=== PATIENT | female | born 1955 | race Caucasian/White ===

== ENCOUNTER 2020-03-06 16:39 | Inpatient (IN) | payer MEDICARE, BC ==
[~2020-03-06] VITALS: Ht 162.6 cm; Wt 45.4 kg
--- NOTE | 2020-03-06 16:00 | NUR ---
RECIEVED PT FROM FAMILY;TAKEN TO ROOM 1113A.ORIENTED TO ROOM AND CALL LIGHT.ALARM SET.
[2020-03-06 17:02] VITALS: BP 118/61
[2020-03-06 17:17] VITALS: BP 118/61; BMI 17.2
[2020-03-06] MEDS ORDERED: CITRACAL + D E1 EACH PO (18:28)
[2020-03-06] MEDS ORDERED: ECOTRIN325 MG PO (18:29)
[2020-03-06] MEDS ORDERED: FERROUS SULFAT325 MG PO (18:33)
[2020-03-06] MEDS ORDERED: FOLIC ACID1 MG PO (18:34)
[2020-03-06] MEDS ORDERED: NEURONTIN600 MG PO (18:35)
[2020-03-06] MEDS ORDERED: OMEPRAZOLE20 M1 PO (18:37)
[2020-03-06] MEDS ORDERED: NITROSTAT0.4 MG SL (18:37)
[2020-03-06] MEDS ORDERED: K-DUR20 MEQ PO (18:38)
[2020-03-06] MEDS ORDERED: ZOLOFT100 MG PO (18:39)
[2020-03-06] MEDS ORDERED: VITAMIN B-1100 M1 PO (18:39)
[2020-03-06] MEDS ORDERED: TOPAMAX100 MG PO (18:40)
[2020-03-06] MEDS ORDERED: VITAMIN B-1250 MCG PO (18:42)
[2020-03-06] MEDS ORDERED: VITAMIN D1000 UNI1 PO (18:44)
--- NOTE | 2020-03-06 19:07 | NUR ---
GREETED PATIENT AND INTRODUCED MYSELF HER NURSE. PATIENT IS RESTING QUIETLY AT THIS TIME BUT CONFUSED TO ONLY HERSELF AT THIS TIME. RESPIRATIONS EVEN. NO S/S OF DISTRESS. BEDSIDE SHIFT REPORT COMPLETE FROM OFF GOING NURSE. CALL LIGHT IN REACH.
[2020-03-06 23:05] VITALS: BP 125/63
--- NOTE | 2020-03-07 00:41 | NUR ---
WHILE TRYING TO CHANGE PATIENT OF INCONTINENT URINE. PATIENT STARTING CUSSING AND SWINGING AT THIS NURSE AND THE AID. ATTEMPTED TO REPOSITION PATIENT AND STILL CUSSING AND TRYING TO HIT. CALL LIGHT IN REACH.
--- NOTE | 2020-03-07 05:49 | NUR ---
PT RESTING QUIETLY WITH EYES CLOSED. RESPIRATIONS EVEN. NO S/S OF DISTRESS. CALL LIGHT IN REACH.
--- NOTE | 2020-03-07 06:50 | NUR ---
RESTING IN BED WITH EYES CLOSED. RESPIRATIONS EVEN AND UNLABORED. NO S/S OF ACUTE DISTRESS NOTED. BUE BRUISING. BED ALARM ON. CALL LIGHT IN REACH. WILL CONTINUE TO MONITOR.
[2020-03-07 07:22] LABS: BASOPHILS 0.3 % (0-2); EOSINOPHILS 2.4 % (0-7); HEMOGLOBIN 11.7 g/dL (12-16); LYMPHOCYTES 38.1 % (15-50); MCH 36.3 pg (26.0-34.0); MCHC 33.4 g/dL (31.0-37.0); MCV 108.7 fL (80.0-100.0); MEAN PLATELET VOLUME 9.4 fL (7.4-10.4); MONOCYTES 12.3 % (2-11); NEUTROPHILS 46.9 % (40-80); PLATELET COUNT 194 10x3/uL (130-400); RBC 3.22 10x6/uL (4.00-5.40); RDW 14.8 % (11.5-14.5); WBC 3.3 10x3/uL (4.8-10.8)
[2020-03-07 07:34] LABS: CALC OSMOLALITY 280 mosm/kg (275-300); CARBON DIOXIDE 25.1 mmol/L (21.0-32.0); CHLORIDE - SERUM 107 mmol/L (98-107); CREATININE - SERUM 0.8 mg/dL (0.6-1.3); GLUCOSE 72 mg/dL (74-106); POTASSIUM - SERUM 3.1 mmol/L (3.5-5.1); SODIUM 142 mmol/L (136-145); UREA NITROGEN 9 mg/dL (7-18); eGFR NON AFRICAN AMERICAN 76 mL/min (90-120)
[2020-03-07 08:00] VITALS: BP 98/53
--- NOTE | 2020-03-07 11:00 | NUR ---
I have reviewed this patient and I concur with the Shift Assessment completed by the Licensed Practical Nurse today this shift.
[2020-03-07 14:04] VITALS: Ht 162.6 cm; Wt 45.4 kg
--- NOTE | 2020-03-07 15:46 | NUR ---
PATIENT ANXIOUS AND TRYING TO GET OUT OF BED. TREMORS TO HANDS AND LEGS VERY PROMINATE. THIS NURSE GAVE PATIENT ATIVAN PER PHYSICIAN ORDERS. THIS NURSE ASSISTED PATIENT TO RESTROOM AND BROUGHT PATIENT TO NURSES STATION TO OBSERVE AND REDIRECT PATIENT. THEN ASSISTED PATIENT BACK TO BED PER PATIENT REQUEST. SHARON ALARM ON. CALL LIGHT IN REACH. WILL CONTINUE TO MONITOR.
--- NOTE | 2020-03-07 16:11 | NUR ---
CARE TEAM MEETING: PATIENT IS NEW TO UNIT AND WILL BE RA AT NEXT MEETING. WILL CONTINUE TO FOLLOW WITH PATIENT.
--- NOTE | 2020-03-07 16:30 | RHP ---
PATIENT: JOSE ANTONIO ANDRADE MEDICAL RECORD: [id number] ACCOUNT: [id number] LOCATION:[id number] : 53 ADMISSION DATE: 03/06/20 REHABILITATION HISTORY AND PHYSICAL EXAMINATION POST ADMISSION PHYSICIAN EXAMINATION HISTORY OF PRESENT ILLNESS: The patient is a 64-year-old female patient admitted for Wernicke's encephalopathy. She is 64-year-old female patient admitted to the hospital for generalized weakness and tremors. She stayed in the ER that she did consume alcohol every day, but has not had any for 4 days prior to admission. She began having weakness, tremors, dizziness. The patient was noted to have an elevated blood pressure, tachycardia, low magnesium and was anxious. She was receiving IV banana bag and electrolyte placement and started on an Ativan. The patient spoke with the patient's daughter and noted that she has had these symptoms in the past. Because of her alcoholism, she is noted to be weak, debilitated at that time and admitted for acute rehab to be able to return back to her prior level of functioning. She was receiving physical and occupational therapy during her stay. She needs to monitor closely for any type of seizure activity, alcohol withdrawal, pain control, monitor input and output and electrolytes, proximal muscle weakness, moderate tremors, balance deficits, decreased activity tolerance, impaired mobility, decreased quality of life, decreased range of motion, strength, gait disturbance, limited safety awareness and she is at risk for falls. She needs cues for equipment. She has got low endurance, unsteady gait, balance. She fatigues easily, inability to care for herself and self-care deficit. These are barriers to her discharge home. She lives in an apartment at [facility] and was independent with ADLs and mobility using her wheelchair and rolling walker at times. She is currently set up for mod assist for ADLs and mod assist for mobility. She would like to return back home at her prior level of function or better. She has been somewhat confused and combative at times here. COMORBIDITIES: Include weakness, alcohol withdrawal seizures, tremor, confusion and dizziness, impaired mobility, gait disturbance, self-care deficit and high fall risk. PAST MEDICAL HISTORY: Significant for coronary artery disease, carpal tunnel, depression, hypertension, hyperlipidemia, osteoporosis, syncope, traumatic intracranial hemorrhage and subarachnoid hemorrhage secondary to fall, alcohol abuse, tobacco use. PAST SURGICAL HISTORY: Includes bladder repair, angioplasty with stent and a risked for fracture repair. ALLERGIES: EGGS AND TOMATOES. CURRENT MEDICATIONS: Include atenolol 25 mg b.i.d., folic acid 1 mg daily, ferrous sulfate 325 daily, aspirin 325 mg daily, vitamin D 1000 units daily, B12 50 mcg daily, Topamax 100 mg daily, B1 or thiamine 100 mg daily, Zoloft 100 mg daily, Protonix 40 mg daily, lorazepam 1 mg q.6 hours p.r.n., melatonin 6 mg at bedtime, potassium 20 mEq b.i.d., Os-Mumtaz D 500 mg b.i.d., Neurontin 600 mg b.i.d., Nitrostat p.r.n., and polyethylene glycol 17 g in 8 ounces of water daily. HABITS: Does have history of tobacco and alcohol use. HISTORY AND PHYSICAL [id number] JOSE ANTONIO ANDRADE FAMILY HISTORY: Noncontributory. SOCIAL HISTORY: The patient hopes to return back to [place] and get back to her prior level of functioning. REVIEW OF SYSTEMS: GENERAL: Does complain of weakness and fatigue. HEENT: Denies cold, cough, or congestion. CARDIOVASCULAR: Denies any chest pain. PHYSICAL EXAMINATION: VITAL SIGNS: Stable, afebrile. GENERAL: A thin, elderly female, in no acute distress, alert upon exam. HEENT: Normocephalic and atraumatic. Mucosa moist. NECK: Supple. No lymphadenopathy. LUNGS: Clear at this time. No wheezing or rales. HEART: Regular rate and rhythm. No murmurs, rubs or gallops. ABDOMEN: Soft, benign, and nondistended. Positive bowel sounds times 4. EXTREMITIES: No clubbing, cyanosis or edema. NEUROLOGIC: She is little bit confused, but is easily redirected. LABORATORY DATA: Her white count is 3.3, H&H of 11 and 35 respectively. MCV is 108.7, which is expected with her alcohol use. Platelets 194. Sodium 142, potassium 3.1, BUN and creatinine of 9 and 0.8 and blood sugar is noted to be 72. ASSESSMENT: A 64-year-old female patient admitted to rehab with a working diagnosis of Wernicke's encephalopathy. The patient has potential to make improvement. We instituted the following multidisciplinary therapies including, but not limited to physical, occupational, respiratory, speech, nutritional services, prosthetics and orthotics. Given her complex medical condition and risk for more complications, rehabilitation services cannot be provided at a low level of care such a skilled nurse facility. PLAN: 1. Admit to [facility] for intensive inpatient therapy to include the following disciplines: A. Physical therapy to improve gait, all transfer skills and bed mobility to a modified independent level. B. Occupational therapy to improve activities of daily living. C. Case management to assist with discharge planning and placement options. D. Nutrition to assist with nutritional needs. E. Rehabilitation nursing to assist in monitoring the patient's underlying medical conditions and to assist with any type bowel or bladder management. 2. The patient's current medication and medical care will be continued. 3. The patient will be placed on standard fall precautions. 4. I am going to place her back on some Librium, can still use Ativan p.r.n. 5. We will reevaluate in the a.m. TRANSINT:[id number] Voice Confirmation ID: [id number] DOCUMENT ID: [id number] BARBARA notes whether there has been none or any medical/functional change since admission: - No change since pre-admission screen. HISTORY AND PHYSICAL [id number] JOSE ANTONIO ANDRADE attests patient continues to be appropriate for IRF: - Continues to be appropriate. YRN ARSHAD MD at 1630 CC: [id number] DICTATION DATE: 03/07/20907 [employer]KER: 03/07/20 0958 ADM IN [facility] [address] [place] [address]
--- NOTE | 2020-03-07 18:06 | NUR ---
RESTING IN BED WITH HOB ELEVATED, DRINKING AN ENSURE. NO C/O PAIN. NO S/S OF ACUTE DISTRESS NOTED. DENIES ANY NEEDS AT THIS TIME. CALL LIGHT IN REACH. SHARON ALARM ON. WILL CONTINUE TO MONITOR.
--- NOTE | 2020-03-07 18:49 | NUR ---
GREETED PATIENT AND INTRODUCED MYSELF HER NURSE. PATIENT IS LAYING IN BED AT THIS TIME. PT CONFUSED AT THIS TIME. ALERT TO SELF ONLY. RESPIRATIONS EVEN. NO S/S OF DISTRESS. CALL LIGHT IN REACH.
[2020-03-07 20:33] VITALS: BP 142/78
--- NOTE | 2020-03-08 00:01 | NUR ---
PT SITTING AT NURSES DESK IN WHEELCHAIR. REFUSES TO STAY IN BED. PATIENT IS CONFUSED OF SURROUNDINGS.
--- NOTE | 2020-03-08 01:11 | NUR ---
PT SITTING IN WHEELCHAIR AT THE NURSES DESK. STILL REFUSING TO GO TO BED.
--- NOTE | 2020-03-08 03:45 | NUR ---
PT RETURNED BACK TO BED FROM SITTING IN WHEELCHAIR AT NURSES DESK. CALL LIGHT IN REACH.
--- NOTE | 2020-03-08 04:06 | NUR ---
PT RESTING QUIETLY WITH EYES CLOSED. RESPIRATIONS EVEN. NO S/S OF DISTRESS. CALL LIGHT IN REACH.
[2020-03-08 08:00] VITALS: BP 114/57
--- NOTE | 2020-03-08 08:00 | NUR ---
PATIENT RESTING IN BED WITH EYES CLOSED, NO S/S OF DISTRESS NOTED AT THIS TIME, C/L AND H2O IN REACH, BED ALARM ON
--- NOTE | 2020-03-08 12:00 | NUR ---
PT. UP IN IN W/C WATHCING TV, CONFUSION NOTED, CHAIR ALARM ON, C/L AND H2O IN REACH
--- NOTE | 2020-03-08 16:04 | NUR ---
PT. UP IN W/C WITH THERAPY, DENIES ANY NEEDS AT THIS TIME, CHAIR ALARM ON
[2020-03-08 20:00] VITALS: BP 127/73
--- NOTE | 2020-03-08 22:52 | NUR ---
RECEIVED PATIENT LYING IN BED, CONFUSED, TREMORS FROM ALCOHOL WITHDRAWAL, ABLE TO SWALLOW MEDS, ABLE TO MAKE SIMPLE NEEDS KNOWN, WILL MONITOR PATIENT, WILL FOLLOW POC
[2020-03-09 07:58] LABS: BASOPHILS 0.3 % (0-2); EOSINOPHILS 2.3 % (0-7); HEMATOCRIT 37.2 % (36.0-48.0); HEMOGLOBIN 12.2 g/dL (12-16); IMMATURE GRANULOCYTES 0.3 % (0-5); LYMPHOCYTES 31.8 % (15-50); MCH 36.4 pg (26.0-34.0); MCHC 32.8 g/dL (31.0-37.0); MEAN PLATELET VOLUME 9.9 fL (7.4-10.4); MONOCYTES 11.7 % (2-11); NEUTROPHILS 53.6 % (40-80); PLATELET COUNT 159 10x3/uL (130-400); RBC 3.35 10x6/uL (4.00-5.40); RDW 14.8 % (11.5-14.5); WBC 3.1 10x3/uL (4.8-10.8)
[2020-03-09 08:00] VITALS: BP 103/60
--- NOTE | 2020-03-09 08:15 | NUR ---
RESTING IN BED WITH EYES CLOSED, NO S/S OF DISTRESS NOTED, C/L AND H2O IN REACH, BED ALARM ON.
[2020-03-09 08:16] LABS: CALC OSMOLALITY 273 mosm/kg (275-300); CALCIUM 9.2 mg/dL (8.5-10.1); CARBON DIOXIDE 19.9 mmol/L (21.0-32.0); CHLORIDE - SERUM 104 mmol/L (98-107); CREATININE - SERUM 0.5 mg/dL (0.6-1.3); GLUCOSE 74 mg/dL (74-106); POTASSIUM - SERUM 5.4 mmol/L (3.5-5.1); SODIUM 137 mmol/L (136-145); UREA NITROGEN 14 mg/dL (7-18); eGFR NON AFRICAN AMERICAN > 90 mL/min (90-120)
--- NOTE | 2020-03-09 11:40 | NUR ---
PATIENT UP WITH PT THIS MORNING BEGAN TO FEEL NAUSEA AND THREW UP, PT TOOK PATIENT TO BATHROOM AND PATIENT PASSED A LARGE AMOUNT OF DIARRHEA, SKIN COLOR PALE, B/P OF 84/48, RAPID RESPONSE CALLED, IV STARTED IN RT. FOREARM WITH N/S RUNNING. V/S WNL. PATIENT RESTING WITH EYES CLOSED, C/L AND H2O IN REACH.
[2020-03-09 12:24] LABS: BASOPHILS 0.2 % (0-2); EOSINOPHILS 2.1 % (0-7); HEMATOCRIT 37.1 % (36.0-48.0); HEMOGLOBIN 12.5 g/dL (12-16); IMMATURE GRANULOCYTES 0.2 % (0-5); LYMPHOCYTES 32.5 % (15-50); MCHC 33.7 g/dL (31.0-37.0); MCV 109.8 fL (80.0-100.0); MONOCYTES 12.2 % (2-11); NEUTROPHILS 52.8 % (40-80); PLATELET COUNT 193 10x3/uL (130-400); RBC 3.38 10x6/uL (4.00-5.40); RDW 14.8 % (11.5-14.5); WBC 4.3 10x3/uL (4.8-10.8)
--- NOTE | 2020-03-09 12:31 | NUR ---
PATIENT ADMITTED TO [facility] FROM [facility]. SHE RESIDES AT [facility] IN THE [place]. DISCHARGE PLANS ARE FOR HER TO RETURN THERE. MARJ SOMERS IS PATIENT POA [phone]. WILL CONTINUE TO FOLLOW WITH PATIENT.
[2020-03-09 15:38] LABS: CALC OSMOLALITY 275 mosm/kg (275-300); CALCIUM 9.1 mg/dL (8.5-10.1); CARBON DIOXIDE 20.4 mmol/L (21.0-32.0); CHLORIDE - SERUM 104 mmol/L (98-107); GLUCOSE 82 mg/dL (74-106); SODIUM 138 mmol/L (136-145); UREA NITROGEN 15 mg/dL (7-18)
[2020-03-09 15:44] LABS: CREATININE - SERUM 0.7 mg/dL (0.6-1.3); POTASSIUM - SERUM 4.2 mmol/L (3.5-5.1); eGFR NON AFRICAN AMERICAN 89 mL/min (90-120)
[2020-03-09 20:04] VITALS: BP 77/34
--- NOTE | 2020-03-09 20:04 | NUR ---
PT IN BED TRUNDLENBERG POSITION, VS. 97.3, BP-77/43, P-65, R-17, O2-98 RA. SLEEPING, AROUSES EASILY TO VOICE, NO NEEDS NOTED, FALL PRECAUTIONS IN PLACE, FLUIDS/CALL LIGHT WITHIN REACH
--- NOTE | 2020-03-09 20:42 | NUR ---
ATENOLOL HELD BP-96/46 P-63
--- NOTE | 2020-03-10 04:49 | NUR ---
PT CONTINUES TO HAVE LOW BP 86/46, P 59 AT 0430, STARTED NEW ORDER FOR 250ML 0.9% AT A RATE OF 250ML/HR PT ASHEN IN COLOR,HAS BEEN IN TRUNDLE CLARISSA POSITION SINCE DAY SHIFT DUE TO SUDDEN BP DROP AND WEAKNESS AFTER BOUT OF DIARRHEA, PT CONTINUES TO HAVE DIARRHEA DARK AND GREEN IN COLOR.
--- NOTE | 2020-03-10 05:45 | NUR ---
PT RECIEVED ANOTHER 250ML NS AT 250ML/HR BP INCREASING 110/59 P 62, PT AROUSES EASILY TO VOICE
[2020-03-10 07:54] LABS: CALC OSMOLALITY 279 mosm/kg (275-300); CALCIUM 9.3 mg/dL (8.5-10.1); CARBON DIOXIDE 22.1 mmol/L (21.0-32.0); CHLORIDE - SERUM 106 mmol/L (98-107); CREATININE - SERUM 0.7 mg/dL (0.6-1.3); GLUCOSE 77 mg/dL (74-106); POTASSIUM - SERUM 3.6 mmol/L (3.5-5.1); SODIUM 140 mmol/L (136-145); UREA NITROGEN 17 mg/dL (7-18); eGFR NON AFRICAN AMERICAN 89 mL/min (90-120)
--- NOTE | 2020-03-10 08:00 | NUR ---
SHIFT ASSMT COMPLETED.
[2020-03-10 10:30] VITALS: BP 80/41
[2020-03-10 13:37] LABS: HEMATOCRIT 36.4 % (36.0-48.0); HEMOGLOBIN 12.4 g/dL (12-16); LYMPHOCYTES 24.8 % (15-50); MCH 37.1 pg (26.0-34.0); MCHC 34.1 g/dL (31.0-37.0); MEAN PLATELET VOLUME 10.1 fL (7.4-10.4); NEUTROPHILS 56.2 % (40-80); RBC 3.34 10x6/uL (4.00-5.40); RDW 14.9 % (11.5-14.5); WBC 3.3 10x3/uL (4.8-10.8)
[2020-03-10 13:42] LABS: PLATELET COUNT 154 10x3/uL (130-400)
--- NOTE | 2020-03-10 19:37 | NUR ---
PT UP IN CHAIR, NO NEEDS NOTED FALL PRECAUTIONS IN PLACE, FLUIDS/CALL LIGHT WITHIN REACH
--- NOTE | 2020-03-11 01:51 | NUR ---
PT TOILETED, FALL PRECAUTIONS IN PLACE, FLUIDS/CALL LIGHT IN REACH
[2020-03-11 02:53] VITALS: BP 129/72
[2020-03-11 03:05] VITALS: BP 104/50
--- NOTE | 2020-03-11 06:26 | NUR ---
PT ON BATH SCHEDULE RECIEVED A BED BATH THIS MORNING
[2020-03-11 08:11] VITALS: BP 86/46
--- NOTE | 2020-03-11 09:40 | NUR ---
PATIENT SAT UP IN BED TO EAT BREAKFAST. BED ALARM ON. CALL LIGHT WITHIN REACH. VOICES NO NEEDS AT THIS TIME. WILL CONTINUE WITH PLAN OF CARE
--- NOTE | 2020-03-11 13:30 | NUR ---
I have reviewed this patient and I concur with the Shift Assessment completed by the Licensed Practical Nurse today this shift.
--- NOTE | 2020-03-11 20:05 | NUR ---
PT IN BED, INCONTINENT EPISODE, CLEANED/BED CHANGED, FLUIDS/CALL LIGHT WITHIN REACH
--- NOTE | 2020-03-11 22:14 | NUR ---
MED PASS COMPLETE, PT INCONTINENT OF B&B, CLEANED/CHANGED, NO OTHER NEEDS NOTED
[2020-03-12 00:16] VITALS: BP 102/54
--- NOTE | 2020-03-12 08:00 | NUR ---
PATIENT RESTING IN BED WITH EYES CLOSED, NO S/S OF DISTRESS NOTED, C/L AND H2O IN REACH.
[2020-03-12 08:24] VITALS: BP 110/63
[2020-03-12 09:00] LABS: HEMATOCRIT 35.2 % (36.0-48.0); HEMOGLOBIN 11.8 g/dL (12-16); MCH 36.4 pg (26.0-34.0); MCHC 33.5 g/dL (31.0-37.0); MCV 108.6 fL (80.0-100.0); MEAN PLATELET VOLUME 9.1 fL (7.4-10.4); PLATELET COUNT 186 10x3/uL (130-400); RBC 3.24 10x6/uL (4.00-5.40); RDW 14.3 % (11.5-14.5); WBC 2.8 10x3/uL (4.8-10.8)
[2020-03-12 09:11] LABS: ANION GAP 11.9 mmol/L (8-16); CALCIUM 9.2 mg/dL (8.5-10.1); CARBON DIOXIDE 25.7 mmol/L (21.0-32.0); CREATININE - SERUM 0.9 mg/dL (0.6-1.3); POTASSIUM - SERUM 3.6 mmol/L (3.5-5.1)
[2020-03-12 11:46] LABS: EOSINOPHILS 3 % (0-7); LYMPHOCYTES 45 % (15-50); MONOCYTES 7 % (2-11); NEUTROPHILS 45 % (40-80); PLATELET ESTIMATE NORMAL; ROULEAUX OCC
--- NOTE | 2020-03-12 12:00 | NUR ---
PT. RESTING IN BED WITH EYES CLOSED, NO S/S OF DISTRESS NOTED, FALL PERCAUTIONS IN PLACE, C/L AND FLUIDS IN REACH.
--- NOTE | 2020-03-12 13:13 | NUR ---
Nutrition Follow-up: Pt confused. Noted poor PO intake and will not drink nutritional supplements. Diet: Regular, Soft PO intake: 23% avg x 6 meals No new wt; last wt: 100# (03/07) Last BM: 03/11 Labs reviewed Meds noted: Folate, vitamin B12, vitamin D, Protonix, Oscal D -Encourage PO intake and honor food preferences within diet restrictions. -Pt may benefit from appetite stimulant. -Rec new wt; pt is underweight. -RD following.
--- NOTE | 2020-03-12 16:00 | NUR ---
RESTING IN BED WITH EYES CLOSED, NO S/S OF DISTRESS NOTED, C/L AND FLUIDS IN REACH, FALL PRECAUTIONS IN PLACE.
--- NOTE | 2020-03-12 20:00 | NUR ---
ALERT SITTING UP IN BED, TREMORS NOTED TO UPPER EXTREMITIES, EYES OPEN BUT WILL NOT ANSWER QUESTIONS, SEE ASSESSMENT, CALL LIGHT IN REACH
[2020-03-12 20:10] VITALS: BP 94/50
--- NOTE | 2020-03-12 21:30 | NUR ---
EYES CLOSED NO TREMORS NOTED AT THIS TIME, REPOSITIONED UP IN BED BUT UNABLE TO AROUSE TO TAKE SCHEDULED MEDS, WILL MONITOR
--- NOTE | 2020-03-13 02:10 | NUR ---
PT RESTING WITH EYES CLOSED RESP UNLABORED
--- NOTE | 2020-03-13 06:18 | NUR ---
NO CHANGE IN ASSESSMENT
--- NOTE | 2020-03-13 07:15 | NUR ---
AROUSES TO VERBAL STIMULI.IS ORIENTED TO SELF.TREMORS PRESENT OF UPPER EXTREMITIES.GENERALIZED WEAKNESS PRESENT.DENIES NEEDS.WILL CONTINUE WITH CURRENT PLAN OF CARE.CL IN EASY REACH,BED IN LOW POSITION.
[2020-03-13 08:23] VITALS: BP 119/70
--- NOTE | 2020-03-13 09:40 | NUR ---
PO MEDS TAKEN WITHOUT DIFFICULTY.
--- NOTE | 2020-03-13 12:00 | NUR ---
IN BED,REPOSITIONED FOR DIET.CL IN EASY REACH,BED IN LOW POSITION.BED ALARM ON AND WORKING.
--- NOTE | 2020-03-13 19:16 | NUR ---
GREETED PATIENT AND INTRODUCED MYSELF HER NURSE. PATIENT IS LAYING IN BED QUIETLY AND LETHARGIC AT THIS TIME. RESPIRATIONS EVEN. NO S/S OF DISTRESS. CALL LIGHT IN REACH.
--- NOTE | 2020-03-14 02:22 | NUR ---
PT RESTING QUIETLY WITH EYES CLOSED. RESPIRATIONS EVEN. NO S/S OF DISTRESS. CALL LIGHT IN REACH.
[2020-03-14 08:00] VITALS: BP 104/57
--- NOTE | 2020-03-14 08:00 | NUR ---
AWAKE,ORIENTED TO [facility].DISORIENTED TO TIME.TREMORS NOT OBSERVED AT PRESENT TIME.SPEECH CLEARER TODAY.DENIES PAIN AND NEEDS.ASSISTED WITH REPOSITIONING FOR DIET.ASSESSMENT COMPLETED .CL IN EASY REACH,BED IN LOW POSITION.WILL CONTINUE WITH CURRENT PLAN OF CARE.
--- NOTE | 2020-03-14 09:25 | NUR ---
Nutrition follow-up: Diet: Regular soft PO intake ~25% of meals; continues poor at this time Labs reviewed +BM Wt: 99# Pt continues with poor po intake Pt may benefit from an appetite stimulant Will order Ensure and fortified foods (Magic Cup, Mighty shake) RDN following.
--- NOTE | 2020-03-14 15:36 | NUR ---
CARE TEAM MEETING: SPOKE WITH PATIENT FAMILY. TEAM RECCOMENDS THAT PATIENT DSICHARGE TO SNF DUE TO HER COGNITION. WILL CONTINUE TO FOLLOW WITH PATIENT. TENATIVE DISCHARGE DATE IS 03/21/20.
--- NOTE | 2020-03-14 19:05 | NUR ---
GREETED PATIENT AND INTRODUCED MYSELF HER NURSE. PATIENT IS EATING HER DINNER AT THIS TIME. PT IS CONFUSED AND ORIENTATED TO SELF ONLY AT THIS TIME. RESPIRATIONS EVEN. NO S/S OF DISTRESS. CALL LIGHT IN REACH.
[2020-03-14 21:42] VITALS: BP 140/71
--- NOTE | 2020-03-15 02:13 | NUR ---
PT RESTING QUIETLY WITH EYES CLOSED. RESPIRATIONS EVEN. NO S/S OF DISTRESS. CALL LIGHT IN REACH.
--- NOTE | 2020-03-15 04:42 | NUR ---
PT RESTING QUIETLY WITH EYES CLOSED. RESPIRATIONS EVEN. NO S/S OF DISTRESS. CALL LIGHT IN REACH.
[2020-03-15 08:00] VITALS: BP 102/58
--- NOTE | 2020-03-15 08:00 | NUR ---
PATIENT IS ALERT/CONFUSED. BED CHAIR ALARM ON AT ALL TIMES. TAKEN DOWN TO THERAPY ROOM FOR REHAB. DENIES ANY PAIN/DISC AT THIS TIME. WILL CONTINUE WITH PLAN OF CARE.
--- NOTE | 2020-03-15 10:10 | NUR ---
PATIENT FALLING ASLEEP IN WHEELCHAIR. HELPED BACK TO BED. BED ALARM ON
--- NOTE | 2020-03-15 15:29 | NUR ---
FAMILY HAS CHOSEN [facility] WILL SEND REFERRAL
--- NOTE | 2020-03-15 17:55 | NUR ---
I have reviewed this patient and I concur with the Shift Assessment completed by the Licensed Practical Nurse today this shift.
--- NOTE | 2020-03-15 19:06 | NUR ---
PT SLEEPING AT THIS TIME. RESPIRATIONS EVEN. NO S/S OF DISTRESS. CALL LIGHT IN REACH.
[2020-03-15 20:54] VITALS: BP 106/63
--- NOTE | 2020-03-16 01:47 | NUR ---
PT RESTING QUIETLY WITH EYES CLOSED. RESPIRATIONS EVEN. NO S/S OF DISTRESS. CALL LIGHT IN REACH.
--- NOTE | 2020-03-16 03:52 | NUR ---
PT RESTING QUIETLY WITH EYES CLOSED. RESPIRATIONS EVEN. NO S/S OF DISTRESS. CALL LIGHT IN REACH.
[2020-03-16 06:25] LABS: CALC OSMOLALITY 296 mosm/kg (275-300); CALCIUM 9.8 mg/dL (8.5-10.1); CARBON DIOXIDE 27.6 mmol/L (21.0-32.0); CHLORIDE - SERUM 111 mmol/L (98-107); CREATININE - SERUM 0.8 mg/dL (0.6-1.3); GLUCOSE 95 mg/dL (74-106); POTASSIUM - SERUM 3.3 mmol/L (3.5-5.1); SODIUM 147 mmol/L (136-145); UREA NITROGEN 27 mg/dL (7-18); eGFR NON AFRICAN AMERICAN 76 mL/min (90-120)
[2020-03-16 06:46] LABS: BASOPHILS 0.5 % (0-2); EOSINOPHILS 2.6 % (0-7); HEMATOCRIT 35.3 % (36.0-48.0); HEMOGLOBIN 11.4 g/dL (12-16); IMMATURE GRANULOCYTES 0.2 % (0-5); LYMPHOCYTES 24.3 % (15-50); MCH 35.8 pg (26.0-34.0); MCHC 32.3 g/dL (31.0-37.0); MONOCYTES 11.1 % (2-11); NEUTROPHILS 61.3 % (40-80); RBC 3.18 10x6/uL (4.00-5.40); RDW 14.3 % (11.5-14.5); WBC 4.2 10x3/uL (4.8-10.8)
[2020-03-16 07:01] LABS: PLATELET COUNT 226 10x3/uL (130-400)
--- NOTE | 2020-03-16 07:56 | NUR ---
RESTING IN BED WITH EYES CLOSED, NO S/S OF DISTRESS NOTED, C/L AND FLUIDS IN REACH.
[2020-03-16 08:18] VITALS: BP 97/56
--- NOTE | 2020-03-16 12:00 | NUR ---
PATIENT RESTING IN BED WITH EYES CLOSED, RESP EVEN AND UNLABORED, NO S/S OF DISTRESS NOTED, C/L AND FLUIDS IN REACH.
--- NOTE | 2020-03-16 15:57 | NUR ---
REFERRAL HAS BEEN FAXED TO [facility] POSSIBLE ADMISSION. WILL CONTINUE TO FOLLOW WITH PATIENT.
--- NOTE | 2020-03-16 16:00 | NUR ---
PATIENT RESTING IN BED WITH EYES CLOSED, RESP EVEN AND UNLABAORED, NO S/S OF DISTRESS NOTED, C/L AND FLUIDS IN REACH.
--- NOTE | 2020-03-16 19:10 | NUR ---
PT RESTING QUIETLY IN BED. CL IN REACH. NO DISTRESS NOTED. EYES CLOSED. RESP EVEN AND UNLABORED. RIGHT FOREARM SL IV. LUNGS CLEAR. BOWEL ACTIVE X4. WAKES TO VERBAL STIMULI. WILL CONTINUE TO MONITOR.
[2020-03-16 20:32] VITALS: BP 107/59
--- NOTE | 2020-03-17 02:00 | NUR ---
CHANGED PT DUE TO INCONT OF URINE. PT ALERT AND CONFUSED. DENIES NEEDS AT THIS TIME. BED IN LOW SIDE RAILS X2. BED ALARM ON. WCTM
--- NOTE | 2020-03-17 05:00 | NUR ---
I have reviewed this patient and I concur with the Shift Assessment completed by the Licensed Practical Nurse today this shift.
--- NOTE | 2020-03-17 08:00 | NUR ---
PATIENT RESTING WITH EYES CLOSED, RESP EVEN AND UNLABORED, NO S/S OF DISTRESS NOTED, V/S AND ASSESSMENT COMPLETED, C/L AND FLUIDS IN REACH.
[2020-03-17 08:14] VITALS: BP 148/64
--- NOTE | 2020-03-17 12:32 | NUR ---
PATIENT RESTING IN BED WITH EYES CLOSED, NO S/S OF DISTRESS NOTED, RESP EVEN AND UNLABORED, CHANGED BED LINENES, DEREK CARE DONE, C/L AND FLUIDS IN REACH.
--- NOTE | 2020-03-17 15:59 | NUR ---
RESTING IN BED WITH EYES CLOSED, NO S/S OF DISTRESS NOTED, RESP EVEN AND UNLABORED, REPOSITIONED AND TURNED, C/L AND FLUIDS IN REACH.
--- NOTE | 2020-03-17 19:12 | NUR ---
PT LYING IN BED RESTING QUIETLY WITH EYES CLOSED. CL IN REACH. NO DISTRESS NOTED. RESP EVEN AND UNLABORED. WAKENS TO VERBAL STIMULI. BED IN LOW SIDE RAILS X2. BED ALARM ON. LUNGS CLEAR. BOWEL ACTIVE X4. WILL CONTINUE TO MONITOR.
[2020-03-17 20:00] VITALS: BP 103/59
--- NOTE | 2020-03-17 23:46 | NUR ---
I have reviewed this patient and I concur with the Shift Assessment completed by the Licensed Practical Nurse today this shift.
--- NOTE | 2020-03-18 02:04 | NUR ---
CHANGED PT DUE TO URINE INCONT. PT RESTING WITH EYES CLOSED. CL IN REACH. WCTM
--- NOTE | 2020-03-18 11:18 | NUR ---
PT RESTING IN BED WITH EYES OPEN CALL LIGHT IN REACH WILL MONITER
--- NOTE | 2020-03-18 18:16 | NUR ---
PT RESTING IN BED WITH EYES OPEN CALL LIGHT IN REACH NO PROBLEMS WILL MONITER
--- NOTE | 2020-03-18 19:20 | NUR ---
PT SITTING UP IN BED. CL IN REACH. DENIES NEEDS AT THIS TIME. BED IN LOW SIDE RAILS X3. BED ALARM ON. RESP EVEN AND UNLABORED. LUNGS CLEAR. BOWEL ACTIVE X4. TOTAL ASSIST. WILL CONTINUE TO MONITOR.
[2020-03-18 20:31] VITALS: BP 112/65
--- NOTE | 2020-03-18 23:46 | NUR ---
CHANGED PT DUE TO URINE INCONT. BED IN LOW SIDE RAILS X3. BED ALARM ON. WCTM
--- NOTE | 2020-03-19 06:14 | NUR ---
BED BATH GIVEN. ENTIRE BED CHANGE COMPLETED. CL IN REACH. PT DENIES NEEDS AT THIS TIME. WCTM
[2020-03-19 06:31] LABS: ANION GAP 12.2 mmol/L (8-16); CALCIUM 9.7 mg/dL (8.5-10.1); CARBON DIOXIDE 28.2 mmol/L (21.0-32.0); CREATININE - SERUM 0.9 mg/dL (0.6-1.3); POTASSIUM - SERUM 3.4 mmol/L (3.5-5.1)
[2020-03-19 07:34] LABS: HEMATOCRIT 36.2 % (36.0-48.0); HEMOGLOBIN 11.9 g/dL (12-16); LYMPHOCYTES 22.3 % (15-50); MCH 36.3 pg (26.0-34.0); MCHC 32.9 g/dL (31.0-37.0); MCV 110.4 fL (80.0-100.0); NEUTROPHILS 64.9 % (40-80); PLATELET COUNT 231 10x3/uL (130-400); RBC 3.28 10x6/uL (4.00-5.40); RDW 13.7 % (11.5-14.5); WBC 5.8 10x3/uL (4.8-10.8)
--- NOTE | 2020-03-19 08:17 | NUR ---
NO C/O PAIN. RESTING. RESP EVEN AND UNLABORED. CL IN REACH.
[2020-03-19 08:23] VITALS: BP 114/58
--- NOTE | 2020-03-19 10:39 | NUR ---
IN THERAPY AT THIS TIME. NO DISTRESS NOTED.
--- NOTE | 2020-03-19 14:11 | NUR ---
Nutrition follow-up: Diet: Regular soft PO intake remains poor - only ~15-25% of meals labs reviewed Wt: 99# Pt may benefit from an appetite stimulant RDN following.
--- NOTE | 2020-03-19 16:39 | NUR ---
RESTING QUIETLY WO DISTRESS. ASSISTED TO BED EARLIER X 2 THERAPIST. TOTAL ASSIST. CL IN REACH. NO CHANGE IN ASSESSMENT.
[2020-03-19 20:00] VITALS: BP 129/66
[2020-03-20 08:00] VITALS: BP 105/62
--- NOTE | 2020-03-20 08:00 | NUR ---
SATS READING 84-86%. ON FLOOR.PLACED ON O2@2L;SATS UP TO 97%.
[2020-03-20 10:21] LABS: HEMATOCRIT 37.5 % (36.0-48.0); HEMOGLOBIN 12.5 g/dL (12-16); LYMPHOCYTES 17.4 % (15-50); MCH 36.2 pg (26.0-34.0); MCHC 33.3 g/dL (31.0-37.0); MCV 108.7 fL (80.0-100.0); MEAN PLATELET VOLUME 9.8 fL (7.4-10.4); NEUTROPHILS 74.4 % (40-80); PLATELET COUNT 234 10x3/uL (130-400); RBC 3.45 10x6/uL (4.00-5.40); RDW 13.7 % (11.5-14.5); WBC 6.5 10x3/uL (4.8-10.8)
--- NOTE | 2020-03-20 10:30 | NUR ---
PLACED ON C-COLLAR TO HELP ELEVEATE NECK STRAIN.PORT CXR TAKEN.
[2020-03-20 10:41] LABS: CALC OSMOLALITY 304 mosm/kg (275-300); CALCIUM 10.1 mg/dL (8.5-10.1); CARBON DIOXIDE 27.3 mmol/L (21.0-32.0); CHLORIDE - SERUM 111 mmol/L (98-107); CREATININE - SERUM 0.8 mg/dL (0.6-1.3); GLUCOSE 122 mg/dL (74-106); POTASSIUM - SERUM 3.6 mmol/L (3.5-5.1); PRO BNP 204 pg/mL (0-125); SODIUM 148 mmol/L (136-145); UREA NITROGEN 40 mg/dL (7-18); eGFR NON AFRICAN AMERICAN 76 mL/min (90-120)
[2020-03-20 10:42] LABS: TROPONIN-I < 0.017 ng/mL (0.000-0.060)
--- NOTE | 2020-03-20 19:59 | NUR ---
RESTING IN BED WITH EYES CLOSED. RESPIRAITONS UNALBORED. C COLLAR ON TO PREVENT LEANING OVER HEAD TOO FAR. O2/2L ON PER NASAL CANNULA. NOTED WEAKNESS. NO ACUTE DISTRESS NOTED.
[2020-03-20 21:18] VITALS: BP 149/81
--- NOTE | 2020-03-21 01:03 | NUR ---
RESTING IN BED WITH RESPIRATIONS UNLABORED. NO DISTRESS NOTED.
--- NOTE | 2020-03-21 05:00 | NUR ---
WOKE UP BRIEFLY AND WAS TALKING AND LAUGHING TO HERSELF. NOTED CONFUSED. STATED "NO" WHEN I ASK HER IF SHE NEEDED ANYTHING. NOW RESTING WITH EYES CLOSED AND RESPIRATIONS UNLABORED.
--- NOTE | 2020-03-21 08:00 | NUR ---
SHIFT ASSMT COMPLETED.UP OOB;PT STIFF AND RIGID.PLACED IN WC;MOD TRANSFER.REQUIRES BREAKFAST SET-UP AND FED.DRINKING FLDS BETTER TODAY.MORE ALERT TODAY.
--- NOTE | 2020-03-21 10:13 | NUR ---
PATIENT DISCHARGING TO [facility] TODAY VIA FACILITY VAN. NO HOME HEALTH OR DME NEEDED AT THIS TIME.AN APPOINTMENT WITH DR. SHANIA ANDRADE WILL BE MADE AT TIME OF DISCHARGE FROM FACILITY. NALLELY SIGNED FROM VERBAL PERMISSION OF EDDIE LAINEZ AND EXPLAINED. DISCHARGE INSTRUCTIONS FAXED TO PCP, SNF AND REVIEWED WITH PATIENT PER PRIMARY NURSE.
--- NOTE | 2020-03-21 16:00 | NUR ---
VICKEY UP OOB TODAY AND IN CHAIR.CONSUMED 1/4TH MEAL TODAY;2 ENSURE'S AND SHERBERT,WATER AND COLA.PLAN TO DC TO [facility] TOMMORROW.
--- NOTE | 2020-03-21 16:10 | NUR ---
CARE TEAM MEETING: PATIENT DISCHARGE ON HOLD TILL 03/22/20 DUE TO BED AVAILABILITY. WILL CONTINUE TO FOLLOW WITH PATIENT.
--- NOTE | 2020-03-21 19:30 | NUR ---
PATIENT RECEIVED SITTING UP IN BED. INCONTINENT OF URINE. PATIENT CLEANED & PAD BETWEEN LEGS. ASSESSMENT & VITAL SIGNS DONE. BED LOW. ALARM ON. CALL LIGHT WITHIN REACH. WILL CONTINUE TO MONITOR.
[2020-03-21 19:59] VITALS: BP 112/61
--- NOTE | 2020-03-21 21:30 | NUR ---
PATIENT HAD EMESIS ON HER. PATIENT CLEANED. INCONTINENT URINE. PAD & LINENS CHANGED. PATIENT SITTING IN UPRIGHT POSITION. CALL LIGHT WITHIN REACH. ALARM ON. WILL CONTINUE TO MONITOR.
[2020-03-21 22:30] VITALS: BP 126/70
--- NOTE | 2020-03-21 22:30 | NUR ---
PATIENT VITAL SIGNS TAKEN. PATIENT TEMPERATURE ELEVATED. TYLENOL 650 MG GIVEN. BED LOW. ALARM ON. CALL LIGHT WITHIN REACH. WILL CONTINUE TO MONITOR.
--- NOTE | 2020-03-22 01:00 | NUR ---
PATIENT TEMPERATURE 99.0 AXILLARY. PATIENT GIVEN WATER. BED LOW. CALL LIGHT WITHIN REACH. ALARM ON. WILL CONTINUE TO MONITOR.
--- NOTE | 2020-03-22 02:12 | NUR ---
PATIENT EYES CLOSED. RESPIRATIONS 18 & EVEN. BED LOW. ALARM ON. CALL LIGHT WITHIN REACH. WILL CONTINUE TO MONITOR.
--- NOTE | 2020-03-22 02:13 | NUR ---
I have reviewed this patient and I concur with the Shift Assessment completed by the Licensed Practical Nurse today this shift.
--- NOTE | 2020-03-22 04:11 | NUR ---
PATIENT EYES CLOSED. RESPIRATIONS 18 & EVEN. BED LOW. ALARM ON. CALL LIGHT WITHIN REACH. WILL CONTINUE TO MONITOR.
[2020-03-22 07:36] VITALS: BP 101/55
== END 2020-03-22 10:10 | DRG 641 ==
LOC: D.REHAB 16:39
PROVIDERS: ADMIT Emergency Medicine; ATTEND Emergency Medicine
DX: E51.2 Wernicke's encephalopathy (principal); F10.232 Alcohol dependence with withdrawal with perceptual disturbance; F44.89 Other dissociative and conversion disorders; R26.9 Unspecified abnormalities of gait and mobility; Z91.81 History of falling; I25.10 Atherosclerotic heart disease of native coronary artery without angina pectoris; I10 Essential (primary) hypertension; E78.5 Hyperlipidemia, unspecified